=== PATIENT | male | born 1990 | race African-American/Black ===

== ENCOUNTER 2017-11-17 10:46 | Emergency (ER) | payer OTHER ==
[~2017-11-17] VITALS: Ht 175.3 cm; Wt 102.0 kg
[~2017-11-17 10:46] MED LIST: MOBIC15 MG PO; NAPROXEN500 MG PO; NORCO 5/3251 TABLET PO
[2017-11-17 11:11] VITALS: BP 114/86
[2017-11-17] MEDS ORDERED: NAPROSYN500 MG PO (12:15)
== END 2017-11-17 12:37 | disposition home or self-care (01) ==
LOC: EME 10:46
DX: R20.2 Paresthesia of skin (principal); M70.831 Other soft tissue disorders related to use, overuse and pressure, right forearm
CPT/HCPCS: 73080; 99281; 99284